=== PATIENT | female | born 1955 | race Caucasian/White ===

== ENCOUNTER → 2016-12-28 | Outpatient (CLI) | payer BC | DX: Z12.31 Encounter for screening mammogram for malignant neoplasm of breast (principal) | CPT/HCPCS: G0202 ==

== ENCOUNTER → 2016-12-31 | Outpatient (CLI) | payer BC | LOC: KOH-I 13:30 | DX: I82.401 Acute embolism and thrombosis of unspecified deep veins of right lower extremity (principal) | CPT/HCPCS: 93971 ==

== ENCOUNTER 2017-01-05 00:39 | Emergency (ER) | payer BC | END 2017-01-05 01:30 | disposition left against medical advice (07) | LOC: ER1 00:39 | DX: Z53.21 Procedure and treatment not carried out due to patient leaving prior to being seen by health care provider (principal) ==